=== PATIENT | female | born 1960 | race Caucasian/White ===

== ENCOUNTER 2019-02-26 08:15 | Inpatient (IN) | payer OTHER ==
[~2019-02-26] VITALS: Ht 157.5 cm; Wt 63.0 kg
[2019-02-26 08:23] VITALS: BP_SYST 130
[2019-02-26 09:18] LABS: BILIRUBIN,URINE NEGATIVE (NEGATIVE); BLOOD, URINE 1+ (NEGATIVE); CLARITY/URINE CLOUDY (CLEAR); COLOR,URINE YELLOW (YELLOW); GLUCOSE,URINE NEGATIVE (NEGATIVE); KETONES,URINE NEGATIVE (NEGATIVE); LEUKOCYTE ESTERASE ,URINE 3+ (NEGATIVE); NITRITE, URINE NEGATIVE (NEGATIVE); PH,URINE 5.5 (5.0-8.0); PROTEIN URINE NEGATIVE (NEGATIVE); UROBILINOGEN,URINE 0.2 (0.2-1.0)
[2019-02-26 09:21] LABS: BASOPHILS % (AUTO) 0.4 % (0.0-2.0); EOSINOPHILS # (AUTO) 0.1 K/uL (0.0-0.4); EOSINOPHILS % (AUTO) 1.4 % (0.0-4.0); HEMATOCRIT 27.9 % (36-48); HEMOGLOBIN 9.9 g/dL (12.0-16.0); LYMPHOCYTES % (AUTO) 11.2 % (20.5-51.5); MEAN CORPUSCULAR HEMOGLOBIN 36 pg (27-31); MEAN CORPUSCULAR HGB CONC 35 % (32-36); MEAN CORPUSCULAR VOLUME 102 fL (79.0-98.0); MONOCYTES # (AUTO) 0.9 K/uL (0.0-1.0); MONOCYTES % (AUTO) 9.7 % (1.7-9.3); NEUTROPHILS # (AUTO) 7.2 K/uL (1.8-7.7); NEUTROPHILS % (AUTO) 77.3 % (40.0-70.0); PLATELET COUNT (AUTO) 86 K/uL (130-430); RED BLOOD CELL COUNT(AUTO) 2.72 MIL/uL (4.2-6.2); RED CELL DISTRIBUTION WIDTH 23.3 % (9.0-15.0); WHITE BLOOD COUNT (AUTO) 9.3 K/uL (4.8-10.8)
[2019-02-26 09:23] LABS: BACTERIA,URINE MODERATE /HPF (None Seen); WBC,URINE >100 /HPF (0-3)
[2019-02-26 09:36] LABS: CALCIUM 8.6 mg/dL (8.4-11.0); CREATININE 2.91 mg/dL (0.55-1.30); POTASSIUM 3.4 mmol/L (3.5-5.1)
[2019-02-26 09:41] LABS: ALBUMIN 3.2 g/dL (3.4-4.8); TOTAL BILIRUBIN 4.4 mg/dL (0.0-1.0)
[2019-02-26 10:28] LABS: INR 1.7 (0.8-1.2); PROTHROMBIN TIME 17.1 SECS (9.5-12.5)
[2019-02-26] MEDS ORDERED: DIPHENHYDRAMINE INJ 50 MG/ML VIAL IVP ONE (10:30)
[2019-02-26] MEDS ORDERED: NACL 0.9% 2,000 ML IV ONE (10:30)
[2019-02-26] MEDS ORDERED: LEVOFLOXACIN 500 MG/D5W 100 ML IV ONE (10:45)
[2019-02-26] MEDS ORDERED: LACTULOSE 20 GM/30 ML UDC PO ONE ×2 (10:45→15:30)
[2019-02-26] MEDS ORDERED: HALOPERIDOL LACTATE 5 MG/ML VIAL IVP ONE (11:30)
[2019-02-26] MEDS ORDERED: MIDO5TAB PO (12:31)
[2019-02-26] MEDS ORDERED: METO10TA3 PO (12:31)
[2019-02-26] MEDS ORDERED: PRO40 PO (12:31)
[2019-02-26] MEDS ORDERED: LACT10SO6 PO (12:31)
[2019-02-26] MEDS ORDERED: HYDR-3607 PO (12:31)
[2019-02-26] MEDS ORDERED: INSU100V9 SQ (12:31)
[2019-02-26 14:11] VITALS: BP_SYST 116
[2019-02-26 14:20] VITALS: BP_SYST 116
[2019-02-26] MEDS ORDERED: HYDROcodone/ACETAMIN 5-325 MG TAB (NORCO/ VICODIN) PO PRN (15:00)
[2019-02-26] MEDS ORDERED: METOCLOPRAMIDE HCL 10 MG TABLET PO PRN (15:00)
[2019-02-26] MEDS: MIDODRINE HCL 5 MG TABLET (PROAMATINE) PO SCH ×2 (15:00→21:00)
[2019-02-26] MEDS: cefTRIAXone 1 GM in D5W 50 ML IV SCH (15:15)
[2019-02-26] MEDS ORDERED: DEXTROSE 50% JECT 50 ML DISP.SYRIN IVP PRN (15:15)
[2019-02-26 16:00] VITALS: BP_SYST 131
[2019-02-26] MEDS ORDERED: NACL 0.9% 1,000 ML IV SCH (16:00)
[2019-02-26] MEDS ORDERED: SODIUM BICARBONATE 8.4% IV SCH (16:15)
[2019-02-26] MEDS ORDERED: D5W IV SCH (16:15)
[2019-02-26] MEDS ORDERED: JECT IV SCH (16:15)
[2019-02-26] MEDS ORDERED: methylPREDNISolone SOD SUCC 40 MG/ML VIAL IVP ONE (16:15)
[2019-02-26] MEDS ORDERED: POTASSIUM CHLORIDE IV SCH (16:15)
[2019-02-26] MEDS: LACTULOSE 20 GM/30 ML UDC PO SCH (20:35)
[2019-02-26] MEDS: methylPREDNISolone SOD SUCC 40 MG/ML VIAL IVP SCH (20:58)
[2019-02-27] VITALS (15 sets, daily range): BP systolic 110–147
[2019-02-27] MEDS: INSULIN REGULAR, HUMAN 100 UNITS/ML, 10 ML VIAL (humuLIN R) SUBCUT PRN ×4 (06:20→23:06)
[2019-02-27 06:29] LABS: BASOPHILS # (AUTO) 0.1 K/uL (0.0-0.2); BASOPHILS % (AUTO) 0.7 % (0.0-2.0); HEMATOCRIT 27.8 % (36-48); HEMOGLOBIN 9.4 g/dL (12.0-16.0); LYMPHOCYTES # (AUTO) 0.7 K/uL (1.0-5.5); MEAN CORPUSCULAR HEMOGLOBIN 36 pg (27-31); MEAN CORPUSCULAR HGB CONC 34 % (32-36); MEAN CORPUSCULAR VOLUME 106 fL (79.0-98.0); MONOCYTES # (AUTO) 0.6 K/uL (0.0-1.0); MONOCYTES % (AUTO) 4.4 % (1.7-9.3); NEUTROPHILS # (AUTO) 13.4 K/uL (1.8-7.7); NEUTROPHILS % (AUTO) 89.9 % (40.0-70.0); PLATELET COUNT (AUTO) 78 K/uL (130-430); RED BLOOD CELL COUNT(AUTO) 2.63 MIL/uL (4.2-6.2); RED CELL DISTRIBUTION WIDTH 23.5 % (9.0-15.0); WHITE BLOOD COUNT (AUTO) 14.9 K/uL (4.8-10.8)
[2019-02-27 06:39] LABS: INR 1.9 (0.8-1.2); PROTHROMBIN TIME 19.2 SECS (9.5-12.5)
[2019-02-27 07:12] LABS: ALBUMIN 2.9 g/dL (3.4-4.8); CALCIUM 8.8 mg/dL (8.4-11.0); CREATININE 3.49 mg/dL (0.55-1.30); FREE T4 (FREE THYROXINE) 1.5 ng/dl (0.8-1.5); POTASSIUM 4.5 mmol/L (3.5-5.1); THYROID STIMULATING HORMONE 2.55 uIu/mL (0.36-3.74); TOTAL BILIRUBIN 5.8 mg/dL (0.0-1.0)
[2019-02-27] MEDS ORDERED: LACTULOSE 20 GM/30 ML UDC RC ONE (08:30)
[2019-02-27] MEDS ORDERED: PANTOPRAZOLE SODIUM 40 MG TAB PO SCH (09:00)
[2019-02-27] MEDS: MIDODRINE HCL 5 MG TABLET (PROAMATINE) PO SCH ×3 (09:00→22:18)
[2019-02-27] MEDS ORDERED: PANTOPRAZOLE SODIUM 40 MG/VIAL (PROTONIX) IVP SCH (09:00)
[2019-02-27] MEDS: LACTULOSE 20 GM/30 ML UDC PO SCH ×2 (09:00→23:09)
[2019-02-27] MEDS: methylPREDNISolone SOD SUCC 40 MG/ML VIAL IVP SCH ×2 (09:30→22:13)
[2019-02-27] MEDS ORDERED: PHYTONADIONE 10 MG/ML AMP SUBCUT ONE (09:30)
[2019-02-27] MEDS: cefTRIAXone 1 GM in D5W 50 ML IV SCH (09:31)
[2019-02-27] MEDS ORDERED: SODIUM BICARBONATE 8.4% JECT 50 MEQ/50 ML SYRINGE IVP ONE (11:45)
[2019-02-27 16:49] LABS: CALCIUM 8.1 mg/dL (8.4-11.0); CREATININE 3.39 mg/dL (0.55-1.30); POTASSIUM 4.4 mmol/L (3.5-5.1)
[2019-02-27] MEDS ORDERED: LACTULOSE 20 GM/30 ML UDC NG ONE (17:15)
[2019-02-27] MEDS: PANTOPRAZOLE SODIUM 40 MG/VIAL (PROTONIX) IVP SCH (21:49)
[2019-02-27] MEDS: metroNIDAZOLE 500 mg/NS 100 ML IV SCH (21:52)
[2019-02-27] MEDS: SODIUM BICARBONATE 8.4% VIAL 150 MEQ in D5W 1,000 ML IV SCH ×2 (21:59→23:10)
[2019-02-27] MEDS: LACTULOSE 20 GM/30 ML UDC NG SCH (22:17)
[2019-02-28] VITALS (23 sets, daily range): BP systolic 97–159
[2019-02-28 05:53] LABS: BASOPHILS % (AUTO) 0.2 % (0.0-2.0); HEMATOCRIT 24.6 % (36-48); HEMOGLOBIN 8.5 g/dL (12.0-16.0); LYMPHOCYTES # (AUTO) 0.8 K/uL (1.0-5.5); MEAN CORPUSCULAR HEMOGLOBIN 36 pg (27-31); MEAN CORPUSCULAR HGB CONC 34 % (32-36); MEAN CORPUSCULAR VOLUME 104 fL (79.0-98.0); MONOCYTES # (AUTO) 0.9 K/uL (0.0-1.0); MONOCYTES % (AUTO) 6.9 % (1.7-9.3); NEUTROPHILS % (AUTO) 86.9 % (40.0-70.0); PLATELET COUNT (AUTO) 51 K/uL (130-430); RED BLOOD CELL COUNT(AUTO) 2.37 MIL/uL (4.2-6.2); RED CELL DISTRIBUTION WIDTH 23.8 % (9.0-15.0); WHITE BLOOD COUNT (AUTO) 12.6 K/uL (4.8-10.8)
[2019-02-28 06:25] LABS: INR 2.6 (0.8-1.2); PROTHROMBIN TIME 25.9 SECS (9.5-12.5)
[2019-02-28 06:46] LABS: ALBUMIN 2.6 g/dL (3.4-4.8); CALCIUM 8.8 mg/dL (8.4-11.0); CREATININE 3.58 mg/dL (0.55-1.30); POTASSIUM 3.2 mmol/L (3.5-5.1); TOTAL BILIRUBIN 4.6 mg/dL (0.0-1.0)
[2019-02-28] MEDS: INSULIN REGULAR, HUMAN 100 UNITS/ML, 10 ML VIAL (humuLIN R) SUBCUT PRN ×4 (08:11→21:26)
[2019-02-28] MEDS: SODIUM BICARBONATE 8.4% VIAL 150 MEQ in D5W 1,000 ML IV SCH ×3 (08:15→22:54)
[2019-02-28] MEDS: cefTRIAXone 1 GM in D5W 50 ML IV SCH (08:57)
[2019-02-28] MEDS: PANTOPRAZOLE SODIUM 40 MG/VIAL (PROTONIX) IVP SCH (09:00)
[2019-02-28] MEDS: methylPREDNISolone SOD SUCC 40 MG/ML VIAL IVP SCH ×2 (09:00→20:31)
[2019-02-28] MEDS: LACTULOSE 20 GM/30 ML UDC PO SCH (09:00)
[2019-02-28] MEDS: metroNIDAZOLE 500 mg/NS 100 ML IV SCH (09:00)
[2019-02-28] MEDS: LACTULOSE 20 GM/30 ML UDC NG SCH (09:01)
[2019-02-28] MEDS: MIDODRINE HCL 5 MG TABLET (PROAMATINE) PO SCH ×3 (09:01→20:32)
[2019-02-28] MEDS ORDERED: POTASSIUM CHLORIDE 20 MEQ/PKT PACKET PO ONE (11:30)
[2019-02-28 13:05] LABS: BF APPEARANCE UNSPUN HAZY (CLEAR); BODY FLUID COLOR DARK YELLOW (LT YELLOW); BODY FLUID TOTAL VOLUME 4000 mL; SOURCE/TYPE ,BODY FLUID PARACENTESIS
[2019-02-28 13:06] LABS: LYMPHOCYTES, BODY FLUID 60 %; RBC, BODY FLUID 601 /uL; WBC, BODY FLUID 3.89 /uL
[2019-02-28 13:07] LABS: NEUTROPHIL, BODY FLUID 40 %
[2019-02-28] MEDS: PIPERACILLIN/TAZO 2.25G/DEX-IS 50 ML IV SCH (18:39)
[2019-03-01] VITALS (20 sets, daily range): BP systolic 94–143
[2019-03-01] MEDS: PIPERACILLIN/TAZO 2.25G/DEX-IS 50 ML IV SCH ×5 (00:25→23:12)
[2019-03-01] MEDS: PANTOPRAZOLE SODIUM 40 MG/VIAL (PROTONIX) IVP SCH ×3 (05:33→22:11)
[2019-03-01 05:42] LABS: BASOPHILS % (AUTO) 0.3 % (0.0-2.0); EOSINOPHILS % (AUTO) 0.6 % (0.0-4.0); HEMATOCRIT 23.8 % (36-48); HEMOGLOBIN 8.4 g/dL (12.0-16.0); LYMPHOCYTES # (AUTO) 0.5 K/uL (1.0-5.5); LYMPHOCYTES % (AUTO) 6.3 % (20.5-51.5); MEAN CORPUSCULAR HEMOGLOBIN 37 pg (27-31); MEAN CORPUSCULAR HGB CONC 35 % (32-36); MEAN CORPUSCULAR VOLUME 105 fL (79.0-98.0); MONOCYTES # (AUTO) 0.4 K/uL (0.0-1.0); MONOCYTES % (AUTO) 4.7 % (1.7-9.3); NEUTROPHILS % (AUTO) 88.1 % (40.0-70.0); RED BLOOD CELL COUNT(AUTO) 2.28 MIL/uL (4.2-6.2); RED CELL DISTRIBUTION WIDTH 23.3 % (9.0-15.0)
[2019-03-01 05:51] LABS: PLATELET COUNT (AUTO) 47 K/uL (130-430)
[2019-03-01 05:52] LABS: ALBUMIN 2.5 g/dL (3.4-4.8); CREATININE 3.1 mg/dL (0.55-1.30); POTASSIUM 3.6 mmol/L (3.5-5.1); TOTAL BILIRUBIN 3.8 mg/dL (0.0-1.0)
[2019-03-01 08:06] LABS: HEPATITIS B CORE AB, TOTAL Negative (Negative)
[2019-03-01] MEDS: methylPREDNISolone SOD SUCC 40 MG/ML VIAL IVP SCH (08:25)
[2019-03-01] MEDS: LACTULOSE 20 GM/30 ML UDC PO SCH (08:25)
[2019-03-01] MEDS: MIDODRINE HCL 5 MG TABLET (PROAMATINE) PO SCH ×3 (08:26→22:24)
[2019-03-01] MEDS: METOCLOPRAMIDE HCL 10 MG/2 ML VIAL IVP SCH ×4 (08:26→23:12)
[2019-03-01] MEDS ORDERED: METOCLOPRAMIDE HCL 10 MG/2 ML VIAL IVP ONE (08:30)
[2019-03-01] MEDS ORDERED: 0.45% NACL 1,000 ML IV SCH (11:30)
[2019-03-01] MEDS: INSULIN REGULAR, HUMAN 100 UNITS/ML, 10 ML VIAL (humuLIN R) SUBCUT PRN ×3 (11:57→22:34)
[2019-03-01] MEDS: 0.45% NACL 1,000 ML IV SCH (12:17)
[2019-03-02 00:24] VITALS: BP_SYST 109
[2019-03-02] MEDS: 0.45% NACL 1,000 ML IV SCH ×2 (02:33→10:16)
[2019-03-02] MEDS: PIPERACILLIN/TAZO 2.25G/DEX-IS 50 ML IV SCH ×3 (06:02→17:01)
[2019-03-02] MEDS: METOCLOPRAMIDE HCL 10 MG/2 ML VIAL IVP SCH (06:02)
[2019-03-02] MEDS: INSULIN REGULAR, HUMAN 100 UNITS/ML, 10 ML VIAL (humuLIN R) SUBCUT PRN ×4 (06:14→22:13)
[2019-03-02 08:30] VITALS: BP_SYST 109
[2019-03-02] MEDS ORDERED: methylPREDNISolone SOD SUCC 40 MG/ML VIAL IVP SCH (09:00)
[2019-03-02] MEDS: RIFAXIMIN 550 MG TABLET PO SCH ×2 (09:59→20:32)
[2019-03-02] MEDS: PANTOPRAZOLE SODIUM 40 MG/VIAL (PROTONIX) IVP SCH ×2 (10:00→20:32)
[2019-03-02] MEDS: MIDODRINE HCL 5 MG TABLET (PROAMATINE) PO SCH ×3 (10:00→20:38)
[2019-03-02] MEDS: LACTULOSE 20 GM/30 ML UDC PO SCH (10:00)
[2019-03-02 12:20] VITALS: BP_SYST 118
[2019-03-02 17:05] VITALS: BP_SYST 107
[2019-03-02 18:37] LABS: POTASSIUM 2.9 mmol/L (3.5-5.1)
[2019-03-02 18:39] LABS: ALBUMIN 2.2 g/dL (3.4-4.8); CREATININE 2.92 mg/dL (0.55-1.30); TOTAL BILIRUBIN 4.2 mg/dL (0.0-1.0)
[2019-03-02] MEDS ORDERED: POTASSIUM CHLORIDE 20 MEQ/PKT PACKET PO ONE (19:00)
[2019-03-02 20:00] VITALS: BP_SYST 113
[2019-03-02 21:12] LABS: HEMATOCRIT 25.4 % (36-48); HEMOGLOBIN 8.8 g/dL (12.0-16.0); MEAN CORPUSCULAR HEMOGLOBIN 37 pg (27-31); MEAN CORPUSCULAR HGB CONC 35 % (32-36); MEAN CORPUSCULAR VOLUME 105 fL (79.0-98.0); RED BLOOD CELL COUNT(AUTO) 2.42 MIL/uL (4.2-6.2); RED CELL DISTRIBUTION WIDTH 22.2 % (9.0-15.0); WHITE BLOOD COUNT (AUTO) 3.9 K/uL (4.8-10.8)
[2019-03-02 21:26] LABS: PLATELET COUNT (AUTO) 30 K/uL (130-430)
[2019-03-02 21:28] LABS: BAND % (MANUAL) 1 % (0-6); BASOPHILS % (MANUAL) 0 % (0-2); EOSINOPHILS % (MANUAL) 0 % (0-7); LYMPHOCYTES % (MANUAL) 15 % (20-46); MONOCYTES % (MANUAL) 5 % (0-11)
[2019-03-02] MEDS ORDERED: PHYTONADIONE Non-Formulary 5 MG TABLET PO ONE (21:45)
[2019-03-02] MEDS ORDERED: LEVOFLOXACIN 250 MG/D5W 50 ML IV ONE (22:44)
[2019-03-02] MEDS: LEVOFLOXACIN 250 MG/D5W 50 ML IV SCH (22:46)
[2019-03-02 23:27] VITALS: BP_SYST 106
[2019-03-03] MEDS: 0.45% NACL 1,000 ML IV SCH (03:01)
[2019-03-03] MEDS: INSULIN REGULAR, HUMAN 100 UNITS/ML, 10 ML VIAL (humuLIN R) SUBCUT PRN ×3 (06:57→23:05)
[2019-03-03] MEDS ORDERED: PHYTONADIONE (Vitamin K) Oral Solution PO ONE (07:30)
[2019-03-03 07:40] VITALS: BP_SYST 101
[2019-03-03 07:45] VITALS: BP_SYST 101
[2019-03-03] MEDS: INSULIN NPH 100 UNITS/ML 10 ML VIAL SUBCUT SCH (07:49)
[2019-03-03] MEDS: RIFAXIMIN 550 MG TABLET PO SCH ×2 (09:40→20:38)
[2019-03-03] MEDS: MIDODRINE HCL 5 MG TABLET (PROAMATINE) PO SCH ×3 (09:40→20:39)
[2019-03-03] MEDS: LACTULOSE 20 GM/30 ML UDC PO SCH (09:42)
[2019-03-03] MEDS: PANTOPRAZOLE SODIUM 40 MG/VIAL (PROTONIX) IVP SCH ×2 (09:43→20:38)
[2019-03-03 12:00] VITALS: BP_SYST 113
[2019-03-03 14:13] LABS: HEMOGLOBIN 9.5 g/dL (12.0-16.0)
[2019-03-03 14:21] LABS: HEMATOCRIT 27.3 % (36-48); MEAN CORPUSCULAR HEMOGLOBIN 36 pg (27-31); MEAN CORPUSCULAR HGB CONC 35 % (32-36); MEAN CORPUSCULAR VOLUME 104 fL (79.0-98.0); RED BLOOD CELL COUNT(AUTO) 2.63 MIL/uL (4.2-6.2); RED CELL DISTRIBUTION WIDTH 22.1 % (9.0-15.0); WHITE BLOOD COUNT (AUTO) 4.1 K/uL (4.8-10.8)
[2019-03-03 14:22] LABS: CALCIUM 8.3 mg/dL (8.4-11.0); CREATININE 3.03 mg/dL (0.55-1.30)
[2019-03-03 14:26] LABS: PLATELET COUNT (AUTO) 27 K/uL (130-430)
[2019-03-03 14:28] LABS: ALBUMIN 2.3 g/dL (3.4-4.8); TOTAL BILIRUBIN 4.4 mg/dL (0.0-1.0)
[2019-03-03 14:36] LABS: POTASSIUM 2.8 mmol/L (3.5-5.1)
[2019-03-03 14:40] LABS: BAND % (MANUAL) 0 % (0-6); BASOPHILS % (MANUAL) 0 % (0-2); EOSINOPHILS % (MANUAL) 0 % (0-7); LYMPHOCYTES % (MANUAL) 10 % (20-46); MONOCYTES % (MANUAL) 9 % (0-11)
[2019-03-03] MEDS ORDERED: POTASSIUM CHLORIDE 40 MEQ in NS 250 ML IV ONE (15:00)
[2019-03-03 15:14] VITALS: BP_SYST 118
[2019-03-03 16:07] VITALS: BP_SYST 127
[2019-03-03] MEDS ORDERED: INSULIN NPH 100 UNITS/ML 10 ML VIAL SUBCUT SCH (17:00)
[2019-03-03 20:00] VITALS: BP_SYST 118
[2019-03-03] MEDS: LEVOFLOXACIN 250 MG/D5W 50 ML IV SCH (20:41)
[2019-03-04 00:02] VITALS: BP_SYST 130
[2019-03-04] MEDS: INSULIN NPH 100 UNITS/ML 10 ML VIAL SUBCUT SCH (06:50)
[2019-03-04] MEDS: INSULIN REGULAR, HUMAN 100 UNITS/ML, 10 ML VIAL (humuLIN R) SUBCUT PRN (06:50)
[2019-03-04 07:30] VITALS: BP_SYST 121
[2019-03-04 08:30] VITALS: BP_SYST 121
[2019-03-04 08:55] LABS: ALBUMIN 2.1 g/dL (3.4-4.8); CREATININE 3.09 mg/dL (0.55-1.30); POTASSIUM 3.8 mmol/L (3.5-5.1); TOTAL BILIRUBIN 6.1 mg/dL (0.0-1.0)
[2019-03-04 09:41] VITALS: BP_SYST 121
[2019-03-04] MEDS: LACTULOSE 20 GM/30 ML UDC PO SCH (09:44)
[2019-03-04] MEDS: RIFAXIMIN 550 MG TABLET PO SCH (09:44)
[2019-03-04] MEDS: MIDODRINE HCL 5 MG TABLET (PROAMATINE) PO SCH (09:44)
[2019-03-04] MEDS: PANTOPRAZOLE SODIUM 40 MG/VIAL (PROTONIX) IVP SCH (09:49)
[2019-03-04 10:21] VITALS: BP_SYST 121
== END 2019-03-04 10:50 | disposition short-term general hospital (02) | DRG 720 ==
LOC: SED 08:15 → STU 11:54 → SIC 02-27 10:56 → SMU 03-01 18:18
PROVIDERS: ADMIT Internal Medicine; ATTEND Internal Medicine
DX: A41.9 Sepsis, unspecified organism (principal); K76.7 Hepatorenal syndrome; J69.0 Pneumonitis due to inhalation of food and vomit; G93.41 Metabolic encephalopathy; E43 Unspecified severe protein-calorie malnutrition; E87.2 Acidosis; N17.9 Acute kidney failure, unspecified; R18.8 Other ascites; D68.9 Coagulation defect, unspecified; N39.0 Urinary tract infection, site not specified; K65.2 Spontaneous bacterial peritonitis; E87.1 Hypo-osmolality and hyponatremia; K72.90 Hepatic failure, unspecified without coma; K74.60 Unspecified cirrhosis of liver; E87.6 Hypokalemia; B96.20 Unspecified Escherichia coli [E. coli] as the cause of diseases classified elsewhere; K75.81 Nonalcoholic steatohepatitis (NASH); D63.8 Anemia in other chronic diseases classified elsewhere; E11.9 Type 2 diabetes mellitus without complications; R65.20 Severe sepsis without septic shock; D69.6 Thrombocytopenia, unspecified; Z68.25 Body mass index [BMI] 25.0-25.9, adult; Z79.899 Other long term (current) drug therapy; Z88.1 Allergy status to other antibiotic agents; Z88.8 Allergy status to other drugs, medicaments and biological substances
CPT/HCPCS: 36415; 36600; 49083; 70450-TC; 71045; 80048; 80053; 81000-TC; 82042; 82140-TC; 82803-TC; 82947-TC; 82962; 83605; 83880; 84157-TC; 84439; 84443-TC; 84484; 85007; 85025; 85027; 85610-TC; 85730-TC; 86704; 86706; 86803; 87040-TC; 87070-TC; 87081; 87086; 87186-TC; 89051-TC; 89060-TC; 93005; 96365; 96375; 99291; C1729; C9113; G0378; J0696; J1030; J1200; J1630; J1815; J1956; J2543; J2765; J3430; J3480; J3490; J7030; J7050; J7060